=== PATIENT | male | born 1995 | race Caucasian/White ===

== ENCOUNTER 2019-11-01 01:46 | Emergency (ER) | payer OTHER ==
[~2019-11-01] VITALS: Ht 172.7 cm; Wt 51.3 kg
--- NOTE | 2019-11-01 02:20 | NUR ---
Patient ambulating with steady gait. A&O x4. c/o testicular pain x2 days. sudden onset and does not radiate per patient. patient states that it feels like his testes are moving around. Patient states theres no pain at this time and pain only happens "in a split second". Patient denies any dysuria. Breathing even and unlabored. Denies any cough or SOB. Denies any / GI distress
--- NOTE | 2019-11-01 03:15 | NUR ---
Patient eloped from facility. ER physician notified.
[2019-11-01 04:02] LABS: *BILIRUBIN,URIN NEGATIVE (NEGATIVE); *BLOOD, URINE NEGATIVE (NEGATIVE); *CLARITY,URINE CLEAR (CLEAR); *COLOR,URINE STRAW (YELLOW); *KETONES,URINE NEGATIVE (NEGATIVE); *UROBILINOGEN,URINE 0.2 E.U./dl (NORMAL); LEUKOCYTE ESTERASE ,URINE NEGATIVE (NEGATIVE); NITRITE, URINE NEGATIVE (NEGATIVE); UGLUCOSE NEGATIVE (NEGATIVE)
== END 2019-11-01 03:15 | disposition left against medical advice (07) ==
LOC: ER 01:49
DX: Z53.21 Procedure and treatment not carried out due to patient leaving prior to being seen by health care provider (principal); Z88.0 Allergy status to penicillin; Z88.1 Allergy status to other antibiotic agents